=== PATIENT | male | born 1940 | race Caucasian/White ===

== ENCOUNTER → 2023-11-01 12:38 | Outpatient (REF) | payer MEDICARE, OTHER, SELFPAY | LOC: HWRAD 12:38 | PROVIDERS: ATTENDING PHYSICIAN Specialist; FAMILY PHYSICIAN Family Medicine | DX: R31.0 Gross hematuria (principal) | CPT/HCPCS: 76770 ==

== ENCOUNTER 2023-11-07 06:19 | Day surgery (SDC) | payer MEDICARE, OTHER, SELFPAY ==
[2023-11-07] VITALS (9 sets, daily range): BP systolic 122–159; BP diastolic 65–87; BMI 25.5
[2023-11-07 10:12] LABS: Glucose - Point of Care 107 mg/dl (70-99)
[2023-11-07] MEDS: SYRINGE NON-PUMP 50 ML IRRIG ×2 (12:55→12:56)
[2023-11-07] MEDS: SYRINGE NON-PUMP 50 MG IRRIG ×2 (12:55→12:56)
--- NOTE | 2023-11-07 13:08 | SUR.PHASEI ---
REc'd sleepy on stretcher with HOB elevated low fowlers, IV infusing well, CBI stopped, chemo instilled by Dr Allan, sylvia well, pt oriented x 3 by RN, positioned for comfort, no c/o at present
[2023-11-07] MEDS: Pyridium 200 MG PO (13:13)
--- NOTE | 2023-11-07 13:16 | SUR.PHASEI ---
Lightly dozing, vss, positioned for comfort, sylvia sips of water
--- NOTE | 2023-11-07 13:33 | SUR.PHASEI ---
alert, awake, talking
--- NOTE | 2023-11-07 13:46 | SUR.PHASEI ---
Lightly dozing vss
--- NOTE | 2023-11-07 14:07 | SUR.PHASEI ---
Awake, coreas bag taken down, sylvia well, CBI infusing at present
--- NOTE | 2023-11-07 14:25 | SUR.PHASEI ---
CBI stopped to remove ocreas
== END 2023-11-07 15:15 | disposition home or self-care (01) ==
LOC: SDS 06:19
PROVIDERS: ATTENDING PHYSICIAN Specialist
DX: C67.0 Malignant neoplasm of trigone of bladder (principal)
CPT/HCPCS: 52240; 88307; 82962; J9201

== ENCOUNTER 2024-03-14 06:20 | Day surgery (SDC) | payer MEDICARE, OTHER, SELFPAY ==
[2024-03-14] VITALS (14 sets, daily range): BP systolic 137–162; BP diastolic 72–112; BMI 25.7
[2024-03-14 10:10] LABS: Glucose - Point of Care 142 mg/dl (70-99)
[2024-03-14] MEDS: CYSVIEW KIT 100 MG INTRAVES (10:17)
[2024-03-14] MEDS: NORMOSOL-R 1000 IV (10:17)
[2024-03-14] MEDS: SYRINGE NON-PUMP 50 MG IRRIG ×2 (12:45→12:46)
[2024-03-14] MEDS: SYRINGE NON-PUMP 50 ML IRRIG ×2 (12:45→12:46)
[2024-03-14 13:07] LABS: Glucose - Point of Care 136 mg/dl (70-99)
[2024-03-14] MEDS: ZOFRAN 4 MG IV (13:10)
[2024-03-14] MEDS: COMPAZINE 5 MG IV (15:41)
[2024-03-14] MEDS: ROXICODONE 5 MG PO (16:27)
== END 2024-03-14 16:49 | disposition home or self-care (01) ==
LOC: SDS 06:20
PROVIDERS: ATTENDING PHYSICIAN Specialist
DX: N30.90 Cystitis, unspecified without hematuria (principal); C67.9 Malignant neoplasm of bladder, unspecified
CPT/HCPCS: 52204; 51720; C9738; 88307; 82962; A9589; C2617; J9201

== ENCOUNTER 2024-03-26 16:12 | Emergency (ER) | payer MEDICARE, OTHER, SELFPAY ==
[2024-03-26 16:17] VITALS: BP 135/115
--- NOTE | 2024-03-26 17:11 | ED.GENMED ---
History of Present Illness
General
Chief Complaint: Male Genito-Urinary Symptoms
Source: patient
Exam Limitations: none
Time Seen by Provider: 03/26/24 17:01
History of Present Illness
History of Present Illness:
84-year-old male presents with bladder discomfort and difficulty urinating worsening over the past 2 days. He had a transurethral bladder tumor resection performed on March 14 of this year. He typically was on Eliquis. He stopped Eliquis prior to
the procedure and was on aspirin in the immediate postoperative period. His first dose of Eliquis was yesterday. Today came in with difficulty voiding. He denies fevers or chills. No other complaints at this time
Past History
Past History
ED Past Medical History: Arrthythmia (Atrial fibrillation), Asthma (Bronchitis), Cancer (Melanoma, bladder), Hypercholesterolemia and Other (BPH)
ED Past Surgical History: Urological (Bladder tumor removal 2006) and Other (Skin resection)
Social History
Tobacco: Former smoker (Quit in 1977)
Alcohol: Daily (2-3 drinks a day)
Drug: None
Personal:
Living: with family
Employment: Retired
Family History
Family History: Other (Noncontributory)
Phy Exam
Physical Exam
Physical Exam:
General: Well-appearing male no acute respiratory distress
Abdomen soft mild suprapubic discomfort. No guarding or rebound normal bowel sounds
Extremities: No cyanosis or edema
Course
Orders/Labs/Results
Orders:
Orders
03/26/24 17:43
Urinalysis Reflex To Culture Urgent
Date Specimen was Collected: 03/26/24
Time Specimen was Collected: 17:51
Vital Signs
Initial and Last Documented VS:
Initial Vital Signs
Temp Pulse Resp BP Pulse Ox
98.2 F 86 18 135/115 98
03/26/24 16:17 03/26/24 16:17 03/26/24 16:17 03/26/24 16:17 03/26/24 16:17
Last Documented Vital Signs
Temp Pulse Resp BP Pulse Ox
98.2 F 86 18 135/115 98
03/26/24 16:17 03/26/24 16:17 03/26/24 16:17 03/26/24 16:17 03/26/24 16:17
MDM/Problems Addressed
Differential Diagnosis Includes:
Patient had difficulty voiding. Bladder scan through triage demonstrated 634 mL of urine in the bladder. Bergman catheter was placed for acute urinary retention. There is clear but jewel-colored urine in the bag. Patient is feeling much better.
Contacted urology to notify them.
*Critical Care Note
Total Time (30-74mins, 75-104mins- exclusive of procedures): Not Applicable
Update Note
Update Note:
Discussed findings with urology. They are aware. Catheter to be kept in. Follow-up with urology as planned. Urine culture pending
ED Attending Note
-
Portions of this chart may have been created with voice recognition software.� Occasional wrong word or��sound alike� substitutions may have occurred due to the inherent limitations of voice recognition software.
Discharge Plan
Departure
Patient Disposition: Home (Routine Discharge)
Date of Disposition: 03/26/24
Time of Disposition: 18:00
Patient with high blood pressure during this ER visit?: No
Discharge Problem:
Acute retention of urine
Prescriptions:
No Action
Eliquis 5 MG tablet
5 mg PO BID
multivitamin Tablet
1 tab PO DAILY
metformin 500 mg Tablet
500 mg PO DAILY
hydrochlorothiazide 12.5 mg Capsule
12.5 mg PO DAILY
tadalafil 20 mg Tablet
20 mg PO DAILY PRN (Reason: ED)
montelukast 10 mg Tablet
10 mg PO DAILY
metoprolol succinate 25 mg Tablet Extended Release 24 Hr
25 mg PO DAILY
ezetimibe-simvastatin 10-40 mg Tablet
1 tab PO HS
fluticasone propionate [Flonase] 50 mcg/actuation [place],Suspension
1 spray INTRANASAL DAILY
Referrals:
Torey Calhoun MD [Family Provider] -
Activity Restrictions/Additional Instructions:
Please follow-up with urology as planned. Empty urine Bergman bag as needed.
Interventions
Interventions:
ED-Male Genitourinary Assessment Last Done: 03/26/24 17:04
Discharge Date and Time
Print Language: [place]
[2024-03-26 18:10] LABS: Urine Albumin 1+ (Neg - Trace); Urine Bilirubin Negative (Negative); Urine Character Slightly Cloudy (Clear); Urine Color Yellow; Urine Glucose Negative (Negative); Urine Ketone Trace (Negative); Urine Leukocyte 1+ (Negative); Urine Nitrite Negative (Negative); Urine Occult Blood 4+ (Negative); Urine Urobilinogen Negative (Neg - 1+)
[2024-03-26 18:20] LABS: Urine Squamous Cell 0-2 /LPF (Few)
[2024-03-26 18:21] LABS: Urine Red Blood Cell 26-30 /HPF (0-2)
[2024-03-26 18:22] LABS: Urine Bacteria Few (Negative); Urine White Cell 50-60 /HPF (0-5)
== END 2024-03-26 18:31 | disposition home or self-care (01) ==
LOC: EMR 16:12
PROVIDERS: Physician Assistant; EMERGENCY PHYSICIAN Emergency Medicine; FAMILY PHYSICIAN Family Medicine
DX: R33.9 Retention of urine, unspecified (principal); I48.91 Unspecified atrial fibrillation; J45.909 Unspecified asthma, uncomplicated; E78.00 Pure hypercholesterolemia, unspecified; N40.0 Benign prostatic hyperplasia without lower urinary tract symptoms; Z85.820 Personal history of malignant melanoma of skin; Z87.891 Personal history of nicotine dependence
CPT/HCPCS: 99282; 51702; 81003; 81015; 87086

== ENCOUNTER 2024-05-13 23:57 | Inpatient (IN) | payer MEDICARE, OTHER, SELFPAY ==
[2024-05-13 22:46] VITALS: BP 116/58
--- NOTE | 2024-05-13 22:59 | ED.GENMED ---
History of Present Illness
General
Chief Complaint: Fever
Source: patient
Exam Limitations: none
Time Seen by Provider: 05/13/24 22:52
History of Present Illness
History of Present Illness:
See MDM
Past History
Past History
ED Past Medical History: Arrthythmia (Atrial fibrillation), Asthma (Bronchitis), Cancer (Melanoma, bladder), Hypercholesterolemia and Other (BPH)
ED Past Surgical History: Urological (Bladder tumor removal 2006) and Other (Skin resection)
Social History
Tobacco: Former smoker (Quit in 1977)
Alcohol: Daily (2-3 drinks a day)
Drug: None
Personal:
Living: with family
Employment: Retired
Family History
Family History: Other (Noncontributory)
Phy Exam
Physical Exam
Physical Exam:
See MDM
Course
Orders/Labs/Results
Orders:
Orders
05/13/24 22:58
Straight cath- Treatment ONCE
Acetaminophen [Tylenol] 1,000 mg PO NOW STA
05/13/24 23:01
0.9% Sodium Chloride 1000 ml [Nss] 1,000 ml IV BOLUS
05/13/24 23:17
COVID-19 Antigen Urgent
Source: Nasal Swab
Complete Blood Count/With Diff Urgent
Lactic Acid Q4H
Comment: CANCEL 2nd LACTIC ACID IF 1st LACTIC ACID IS LESS THAN 2
Urinalysis Reflex To Culture Urgent
Date Specimen was Collected: 05/13/24
Time Specimen was Collected: 23:15
Urine Microscopic Reflex Cult Urgent
Urine Culture Urgent
MARILU Source: U
Specimen Description:
Date Specimen was Collected: 05/13/24
Time Specimen was Collected: 23:15
05/13/24 23:18
Blood Culture Urgent
MARILU Source: Blood/Venous
Specimen Description:
05/13/24 23:19
Comprehensive Metabolic Panel Urgent
05/13/24 23:48
CefTRIAXone [Rocephin] 1,000 mg IV NOW STA
05/14/24 03:00
Lactic Acid Q4H
Comment: CANCEL 2nd LACTIC ACID IF 1st LACTIC ACID IS LESS THAN 2
Abnormal Lab Results
05/13/24
23:17
WBC 13.1 H 10^3/uL
(4.8-10.8)
RBC 3.05 L 10^6/uL
(4.70-6.10)
Hgb 9.5 L g/dL
(13.0-18.0)
Hct 26.8 L %
(39.0-52.0)
MCH 31.1 H pg
(27.0-31.0)
Abs Immat Gran (auto) 0.1 H 10^3/uL
(0-0.05)
Absolute Neuts (auto) 11.6 H 10^3/uL
(1.4-6.5)
Absolute Lymphs (auto) 0.5 L 10^3/uL
(1.2-3.4)
Absolute Monos (auto) 0.8 H 10^3/uL
(0.1-0.6)
Immature Gran % 0.8 H %
(0-0.5)
Neutrophils % 88.5 H %
(42.2-75.2)
Lymphocytes % 3.5 L %
(20.5-51.1)
Ur Occult Blood Reflex 4+ A
(Negative)
Urine Nitrite (Reflex) Positive A
(Negative)
Urine Bilirubin 1+ A
(Negative)
Urine Urobilinogen 2+ A
(Neg - 1+)
Leukocyte Esterase Rfl 2+ A
(Negative)
Urine Albumin (Reflex) 3+ A
(Neg - Trace)
05/13/24 23:17
Vital Signs
Initial and Last Documented VS:
Initial Vital Signs
Temp Pulse Resp BP Pulse Ox
100.9 F H 100 22 116/58 95
05/13/24 22:46 05/13/24 22:46 05/13/24 22:46 05/13/24 22:46 05/13/24 22:46
Last Documented Vital Signs
Temp Pulse Resp BP Pulse Ox
100.9 F H 100 22 116/58 95
05/13/24 22:46 05/13/24 22:46 05/13/24 22:46 05/13/24 22:46 05/13/24 22:46
MDM/Problems Addressed
Differential Diagnosis Includes:
HPI and MDM Narrative:
84-year-old male presenting for evaluation of fever. Patient has active bladder cancer and is receiving BCG treatments. He had 1 earlier today. When he developed a fever, he was given Motrin by his spouse. They called on-call urology and it was
suggested to go to the emergency department for evaluation and likely admission for UTI. Patient denies cough or congestion or other source of infection.
Physical exam
General: Weak and fatigued
HEENT: protecting airway
Neck: appears supple
CV: No evidence of cyanosis. Mild tachycardia
Resp: No accessory muscle use. Lungs clear
Abd: Non-distended
Extremities: No deformities
Neuro: alert
Psych: Normal affect
Skin: Warm
Problems Addressed including Acute and Chronic Conditions affecting care:
1. Fever
Acuity: acute
Prognosis: stable
Details: Likely in setting of UTI from recent BCG treatment. Will obtain urinalysis.
2. [ ]
Acuity: acute
Prognosis: stable
Details:
3. [ ]
Acuity: acute
Prognosis: stable
Details:
4. [ ]
Acuity: acute
Prognosis: stable
Details:
5. [ ]
Acuity:
Prognosis:
Details:
Updates
Urine is consistent with UTI. Given the fevers, will start Rocephin and admit
Differential Diagnosis (but not limited to): UTI, viral syndrome, COVID
Testing considered: Chest x-ray but lungs clear
Drug therapy (if applicable): OTC meds, please see d/c instruction regarding Rx drugs
Amount and/or Complexity of Data Reviewed
Clinical info obtained from: Patient
External data reviewed: N/A
Labs I independently reviewed (but not limited to): Leukocytosis, nitrate positive urine
Radiology: N/A
Pulse Ox: not hypoxic
EKG independently reviewed: N/A
Power Cutting Machine Operator: N/A
Critical Care: N/A
Risk of Complication:
Social Determinants of health: Good social support
Discussed with other providers: Hospitalist
Escalation of Care includes Admit/Obs: Given the history of bladder cancer with active UTI and fever, will start antibiotics and admit
Occasional wrong word or 'sound a like' substitutions may have occurred due to the inherent limitations of voice recognition software. Read the chart carefully and recognize, using context, where substitutions have occurred.
*Critical Care Note
Total Time (30-74mins, 75-104mins- exclusive of procedures): Not Applicable
ED Attending Note
-
Portions of this chart may have been created with voice recognition software.� Occasional wrong word or��sound alike� substitutions may have occurred due to the inherent limitations of voice recognition software.
Discharge Plan
Departure
Patient Disposition: Admit
Date of Disposition: 05/13/24
Time of Disposition: 23:50
Admit to: Med/Surg
Presentation/result/management discussed w/ accepting MD/DO: Hospitalist
Discharge Problem:
Acute UTI
Prescriptions:
No Action
Eliquis 5 MG tablet
5 mg PO BID
multivitamin Tablet
1 tab PO DAILY
metformin 500 mg Tablet
500 mg PO DAILY
hydrochlorothiazide 12.5 mg Capsule
12.5 mg PO DAILY
tadalafil 20 mg Tablet
20 mg PO DAILY PRN (Reason: ED)
montelukast 10 mg Tablet
10 mg PO DAILY
metoprolol succinate 25 mg Tablet Extended Release 24 Hr
25 mg PO DAILY
ezetimibe-simvastatin 10-40 mg Tablet
1 tab PO HS
fluticasone propionate [Flonase] 50 mcg/actuation [place],Suspension
1 spray INTRANASAL DAILY
Referrals:
Torey Calhoun MD [Family Provider] -
Interventions
Interventions:
*Risk Screen - Suicide Last Done: 05/13/24 22:46
*Neglect/Abuse Screening Last Done: 05/13/24 22:46
Discharge Date and Time
Print Language: [place]
[2024-05-13] MEDS: NSS 1000 IV (23:24)
[2024-05-13 23:25] VITALS: BP 103/56
[2024-05-13] MEDS: TYLENOL 1000 MG PO (23:30)
[2024-05-13 23:41] LABS: Urine Albumin 3+ (Neg - Trace); Urine Bilirubin 1+ (Negative); Urine Character Very Cloudy (Clear); Urine Color Yellow; Urine Glucose Negative (Negative); Urine Ketone Negative (Negative); Urine Leukocyte 2+ (Negative); Urine Nitrite Positive (Negative); Urine Occult Blood 4+ (Negative); Urine Urobilinogen 2+ (Neg - 1+)
[2024-05-13 23:42] LABS: % Basophils 0.5 % (0-2); % Eosinophils 0.6 % (0-6); % Immature Granulocytes 0.8 % (0-0.5); % Lymphocytes 3.5 % (20.5-51.1); % Monocytes 6.1 % (1.7-9.3); % Neutrophils 88.5 % (42.2-75.2); Absolute Basophils 0.1 10^3/uL (0-0.2); Absolute Eosinophils 0.1 10^3/uL (0-0.7); Absolute Immature Granulocytes 0.1 10^3/uL (0-0.05); Absolute Lymphocytes 0.5 10^3/uL (1.2-3.4); Absolute Monocytes 0.8 10^3/uL (0.1-0.6); Absolute Neutrophils 11.6 10^3/uL (1.4-6.5); Hematocrit 26.8 % (39.0-52.0); Hemoglobin 9.5 g/dL (13.0-18.0); Mean Corp Hgb Conc. 35.4 g/dL (33.0-37.0); Mean Corpuscular Hgb 31.1 pg (27.0-31.0); Mean Corpuscular Volume 87.9 fL (80.0-94.0); Mean Platelet Volume 9.4 fL (7.4-10.4); Nucleated Red Blood Cells % 0 % (-); Platelet Count 264 10^3/uL (130-400); Red Blood Cell Count 3.05 10^6/uL (4.70-6.10); Red Cell Dist. Width 13.5 % (11.5-14.5); White Blood Cell Count 13.1 10^3/uL (4.8-10.8)
[2024-05-13 23:47] LABS: Lactic Acid 0.9 mmol/L (0.7-2.0)
[2024-05-13 23:49] LABS: Urine Amorphous Seen; Urine Mucus Many; Urine Squamous Cell SEEN /LPF (Few)
[2024-05-13 23:50] LABS: Urine Red Blood Cell >100 /HPF (0-2); Urine White Cell >100 /HPF (0-5)
--- NOTE | 2024-05-13 23:52 | HPS.HSE ---
Family Physician
-
Family Physician: Torey Calhoun
Chief Complaint
-
Fever
History of Present Illness
HPI
84M HX Bladder tumor removal 2006, BPH, AF on Eliquis, BPH, HLD , receiving BCG Tx for active bladder CA seen at ER for evalaution of Fever;
- acute onset of fever . denied Chills
- gave him Motrin
- he called Urologist and refer to go to ER.
ROS:
denies cough or congestion or other source of infection.
Medical History
Past Medical History
Past Medical History: Reports Arrhythmia (A Fib ), HTN, Hypercholesterolemia, NIDDM and Other (BPH )
Past Surgical History: Reports Urological (Bladder tumor removal 2006)
Additional Past Surgical History:
Skin resection
Social History
Tobacco: Former Smoker
Alcohol: Daily (2-3 drinks a day)
Living: With Family
Employment: Retired
Family History
Family History: Not pertinent
Allergies / Home Medications
Allergies reflects when Allergies were last updated in [email or web address].
Home Medications with original date entered in [email or web address]
Allergy/Medication List:
Allergies
Allergy/AdvReac Type Severity Reaction Status Date / Time
animal dander Allergy sneezing/si Verified 05/13/24 22:48
nuses
levofloxacin [From Levaquin] Allergy Rash Verified 05/13/24 22:48
nitrofurantoin Allergy Rash Verified 05/13/24 22:48
Quinolones Allergy Rash Verified 05/13/24 22:48
Enviormental Allergy Sneezing, Uncoded 05/13/24 22:48
sinuses
Home Medications
apixaban 5 mg tablet (Eliquis) 5 mg PO BID 09/12/18
hydrochlorothiazide 12.5 mg capsule 12.5 mg PO DAILY 11/06/23
metformin 500 mg tablet 500 mg PO DAILY 11/06/23
multivitamin 1 tab PO DAILY 11/06/23
tadalafil 20 mg tablet 20 mg PO DAILY PRN ED 11/06/23
ezetimibe 10 mg-simvastatin 40 mg tablet 1 tab PO HS 03/12/24
metoprolol succinate 25 mg tablet,extended release 24 hr 25 mg PO DAILY 03/12/24
montelukast 10 mg tablet 10 mg PO DAILY 03/12/24
fluticasone propionate 50 mcg/actuation nasal spray,suspension 1 spray intranasal DAILY 03/14/24
Review of Systems
-
Constitutional: Reports Fever
EENT: Reports No Symptoms
Respiratory: Reports No Symptoms
Cardiac: Reports No Symptoms
Abdomen/GI: Reports No Symptoms
: Reports No Symptoms
Musculoskeletal: Reports No Symptoms
Skin: Reports No Symptoms
Neurological: Reports No Symptoms
Endocrine: Reports No Symptoms
Hematologic/Lymphatic: Reports No Symptoms
Psych: Reports No Symptoms
Physical Exam
Vital Signs
Vital Signs
Temp Pulse Resp BP Pulse Ox
100.9 F H 100 22 116/58 95
05/13/24 22:46 05/13/24 22:46 05/13/24 22:46 05/13/24 22:46 05/13/24 22:46
Physical Exam
General: Well Developed, Well Nourished and No Apparent Distress
HEENT: NormoCephalic, Moist mucous membranes and Atraumatic
Respiratory: Clear
Cardiac: S1/S2 and Tachycardia; No Murmur or Rub
GI: Soft, Non Tender, Non Distended and Normal Bowel Sounds; No Organomegaly
Rectal: Deferred by Provider
Musculoskeletal: No Clubbing, No Cyanosis and No Edema
Skin: No Rash
Neuro: Nonfocal/grossly intact
Laboratory Results
-
05/13/24 23:17
Laboratory Results
Lactic Acid 0.9 mmol/L (0.7-2.0) 05/13/24 23:17
Data Reviewed
-
Lab Data: Labs Reviewed by me
Old Records: Reviewed
Impression/Plan
-
Reviewed VS: T 100.9 HR 100 BP 115/60
Data
Abnormal Lab Results
05/13/24 05/13/24
23:17 23:19
WBC 13.1 H
RBC 3.05 L
Hgb 9.5 L
Hct 26.8 L
MCH 31.1 H
Abs Immat Gran (auto) 0.1 H
Absolute Neuts (auto) 11.6 H
Absolute Lymphs (auto) 0.5 L
Absolute Monos (auto) 0.8 H
Immature Gran % 0.8 H
Neutrophils % 88.5 H
Lymphocytes % 3.5 L
Sodium 131 L
BUN 27 H
Glucose 189 H
Total Protein 5.8 L
Albumin 3.2 L
Ur Occult Blood Reflex 4+ A
Urine Nitrite (Reflex) Positive A
Urine Bilirubin 1+ A
Urine Urobilinogen 2+ A
Leukocyte Esterase Rfl 2+ A
Urine RBC >100 A
Urine WBC (Reflex) >100 A
Urine Albumin (Reflex) 3+ A
Pending CMP
Pending LA
Pending Covid C19
BCx sent
08/23/22 TTE
Normal biventricular size and systolic function without regional wall motion
abnormality.
No significant valvular disease.
No significant change since the prior study of 09/06/18.
Last hospitalist admission:
ASSESSMENT & PLAN
Pending Rx reconciliation
Acute fever
Likely UTI
- No prior POS micro data
- Empiric IV CFTX
- IVF
- Tylenol PRN
Prx AF
- cont Eliquis
- cont Metoprolol succinate
Essential HTN
- cont HCTZ
- cont. Metoprolol succinate
HLD
- cont. Ezetimibe /simvastatin
HX BPH
HX Bladder tumor removal 2006
- receiving BCG Tx for active bladder CA s
DVT Px: HERB DIGGER Eliquis
Code: Full code
IP TLM
[2024-05-13 23:53] LABS: COVID-19 Antigen Negative (Negative)
[2024-05-13] MEDS: ROCEPHIN 1000 MG IV (23:59)
[2024-05-14] VITALS (8 sets, daily range): BP systolic 101–133; BP diastolic 49–69; BMI 27.1; BMI 26.9
[2024-05-14 00:03] LABS: ALT (SGPT) 30 U/L (0-50); AST (SGOT) 33 U/L (17-59); Albumin 3.2 g/dl (3.5-5.0); Alkaline Phosphatase 65 U/L (38-126); Blood Urea Nitrogen 27 mg/dl (9-20); Calcium 8.6 mg/dl (8.4-10.2); Carbon Dioxide 26 mmol/L (22-30); Chloride 98 mmol/L (98-107); Glucose 189 mg/dl (70-99); Potassium 3.6 mmol/L (3.5-5.1); Sodium 131 mmol/L (135-145); Total Bilirubin 0.7 mg/dl (0.2-1.3); Total Protein 5.8 g/dl (6.3-8.2); eGFR > 60.00
[2024-05-14] MEDS: NSS 1000 IV ×2 (00:44→17:08)
--- NOTE | 2024-05-14 03:30 | DOWNTIME ---
There was a [employer] Client Nursing Specialist Downtime on 05/14/2024 from 0100 to 05/14/2024 at 0252. Downtime documentation of patient's care, including medication administrations, has been reconciled in the electronic record per guidelines. Refer to the
patient's paper chart under the miscellaneous tab to see printed paper medication records and downtime forms.
[2024-05-14 06:18] LABS: Hematocrit 27.2 % (39.0-52.0); Hemoglobin 9.2 g/dL (13.0-18.0); Mean Corp Hgb Conc. 33.8 g/dL (33.0-37.0); Mean Corpuscular Hgb 31.5 pg (27.0-31.0); Mean Corpuscular Volume 93.2 fL (80.0-94.0); Mean Platelet Volume 9.4 fL (7.4-10.4); Platelet Count 257 10^3/uL (130-400); Red Blood Cell Count 2.92 10^6/uL (4.70-6.10); Red Cell Dist. Width 13.6 % (11.5-14.5); White Blood Cell Count 14.8 10^3/uL (4.8-10.8)
[2024-05-14 06:44] LABS: Blood Urea Nitrogen 25 mg/dl (9-20); Calcium 8.3 mg/dl (8.4-10.2); Carbon Dioxide 26 mmol/L (22-30); Chloride 100 mmol/L (98-107); Estimated Creatinine Clearance 45 ml/min; Glucose 136 mg/dl (70-99); Potassium 3.8 mmol/L (3.5-5.1); Sodium 133 mmol/L (135-145); eGFR > 60.00
[2024-05-14] MEDS: ELIQUIS 5 MG PO ×2 (09:26→19:23)
--- NOTE | 2024-05-14 12:08 | CM ---
Patient seen bedside.
IA completed.
Patient lives with spouse in an apartment at [facility], independent living.
No assistive devices.
Patient drives.
No hx VN or skilled rehab.
IMM completed.
PCP: Dr Calhoun
Pharmacy: [facility].
Plan: home no needs anticipated.
--- NOTE | 2024-05-14 15:47 | W.PN.HOSP.TC ---
Addendum entered and electronically signed by Marsha Pittman MD 05/16/24 16:03:
Other impression is sepsis: Present on admission with a temperature of 100.9 and white cell count is more than 14
Original Note:
Today's Communication/Plan
-
All discussed with the patient
Discussed with the nurse
CODE STATUS of full code
Called his and updated her over the
Assessment / Plan
Assessment / Plan
Physical exam:
General: Awake, alert and oriented x3, not in distress and holds appropriate conversation.
HEENT: No active discharge, ecchymosis or bruising, moist lips, tongue and mucous membrane.
Eyes: No discharge or red conjunctiva, no nystagmus, pupils are reactive and equal
Neck:Supple, no JVD no bruit no goiter.
Respiratory: Normal AP contour and diameter, normal chest wall movement, normal respiratory effort, no respiratory distress,
Lungs: Good air entry bilaterally, no wheezing or rhonchi, no rales or crackles
Heart: S1, S2 regular, normal rate, no added sound.
Gastrointestinal: Positive bowel sounds, soft, nontender, no guarding or rigidity or organomegaly
Musculoskeletal: , no chest wall abnormality or tenderness. All joints and extremities have good range of motion, no muscle tenderness or any joint swelling or tenderness.
Extremities: No pitting edema, good peripheral pulses, good range of motion
Neurological: Awake, alert and oriented x3, moves extremities freely, no facial droop, normal mental speech clear and comprehensive, good muscle tone,
Psychiatric: Normal mood, normal thought and judgment, normal affect,
84-year-old male with history of bladder tumor removal 2017. Patient had stent in urethra, presented to the hospital with a fever and chill and increased urinary frequency concerning for urinary tract infection.
--Urinary tract infection:
Associate with a fever and chills and increased urinary frequency, mildly improving
Urine and blood cultures pending
Continue Rocephin could be discontinued pending culture and sensitivity
Culture regimen take.
-Leukocytosis: Likely secondary to UTI
Mild elevated
Recheck.
-Hyponatremia: Present admission, was 131 today is 133
Recheck peripherally
-Anemia: Hemoglobin stable around 9 since admission.
Last MR Was 2018 hemoglobin is around 14, if already workup for the anemia as an outpatient was not done we will deferred to primary care further workup for anemia as an outpatient
History of paroxysmal A-fib:
Continue Eliquis
Metoprolol monitor vital sign
-Diabetes mellitus:
Metformin which is on hold
Add Glucoscan and monitor blood sugar closely
Anticipated Discharge: 24 - 48 hours
Subjective/Interval History
-
Date of Service: May 14, 2024
Seen and examined, awake and alert, sitting in the bed, admits chronic dysuria since placing a stent in his urethra, but admits of increasing the frequency but no hematuria, no fever and chills since yesterday evening, no chest pain or shortness of
breath or cough or congestion.
Objective Data
-
Labs:
Laboratory Results
05/14/24
04:43
WBC 14.8 H
Hgb 9.2 L
Hct 27.2 L
Plt Count 257
Sodium 133 L
Potassium 3.8
Chloride 100
Carbon Dioxide 26
BUN 25 H
Creatinine 0.9
Glucose 136 H
Calcium 8.3 L
Vital Signs:
Vital Signs
Temp Pulse Resp BP Pulse Ox
97.7 F 85 18 133/67 98
05/14/24 11:46 05/14/24 11:46 05/14/24 11:46 05/14/24 11:46 05/14/24 11:46
I&O
05/13/24 05/14/24 05/15/24
07:59 07:59 07:59
Intake Total 0 / 0
Balance 0 / 0
Review of Systems
-
All other systems: Reviewed and negative
[2024-05-14 16:48] LABS: Glucose - Point of Care 244 mg/dl (70-99)
[2024-05-14] MEDS: NOVOLOG FLEXPEN-LOW RESISTANCE 2 UNITS SC (17:10)
[2024-05-14] MEDS: TYLENOL 650 MG PO (19:28)
[2024-05-14 21:36] LABS: Glucose - Point of Care 171 mg/dl (70-99)
[2024-05-14] MEDS: STERILE WATER FOR INJECTION 10 ML IV (23:38)
[2024-05-14] MEDS: ROCEPHIN 1000 MG IV (23:38)
[2024-05-15 03:25] VITALS: BP 143/76
[2024-05-15] MEDS: TYLENOL 650 MG PO (03:28)
[2024-05-15 06:00] VITALS: BMI 27.3
[2024-05-15 06:52] LABS: Hematocrit 25.9 % (39.0-52.0); Hemoglobin 8.7 g/dL (13.0-18.0); Mean Corp Hgb Conc. 33.6 g/dL (33.0-37.0); Mean Corpuscular Hgb 30.5 pg (27.0-31.0); Mean Corpuscular Volume 90.9 fL (80.0-94.0); Mean Platelet Volume 9.4 fL (7.4-10.4); Platelet Count 257 10^3/uL (130-400); Red Blood Cell Count 2.85 10^6/uL (4.70-6.10); Red Cell Dist. Width 13.6 % (11.5-14.5); White Blood Cell Count 10.4 10^3/uL (4.8-10.8)
[2024-05-15 07:11] LABS: Blood Urea Nitrogen 21 mg/dl (9-20); Calcium 8.3 mg/dl (8.4-10.2); Carbon Dioxide 28 mmol/L (22-30); Chloride 102 mmol/L (98-107); Estimated Creatinine Clearance 51 ml/min; Glucose 132 mg/dl (70-99); Potassium 3.6 mmol/L (3.5-5.1); Sodium 134 mmol/L (135-145); eGFR > 60.00
--- NOTE | 2024-05-15 07:44 | PN.CDI ---
CDI
- -
CDI:
Physician Documentation Request
Admit Date: 05/13/24 23:57
Dear Doctor Zain,
Please review the following and provide your response in the progress notes.
Clinical Indicators:
PN, 05/14
#--Urinary tract infection:
#...Associate with a fever and chills and increased urinary frequency, mildly improving
#-Leukocytosis: Likely secondary to UTI
Laboratory Tests
05/13/24 05/14/24 05/15/24
23:17 04:43 04:40
WBC 13.1 H 14.8 H 10.4
05/13 Initial VS: 100.9 100 22 116/58 95%
Please clarify which of the following most accurately describes the status of the patient's infection:
Sepsis, POA
Localized Infection Only, Without Systemic Illness
- indicate the site/source, such as UTI, pneumonia etc.
Other(please specify)
Sepsis
- Systemic manifestations of infection, with 2 or more SIRS criteria which include:
- Fever >100.4 degrees F or hypothermia < 96.8 degrees F
- Leukocytosis - WBC > 12,000 or leukopenia - WBC < 4,000 or > 10% bands
- Tachycardia > 90 beats per minute
- Tachypnea - RR > 20 breaths per minute or PaCO2 , 32mmHg
Source: Merck Manual 2013
- Indicate the known or suspected underlying infection, such as UTI, pneumonia or cellulitis
Use of terms such as suspected, likely, concern for, or probable (associated with a specific diagnosis that is being evaluated, monitored, or treated as if it exists) are acceptable and can be coded in the inpatient setting, when documented at the
time of discharge.
Thank you,
Halima Hooks RN BSN CCDS
CDI Specialist
please contact via tiger text
Please use your independent medical judgment in providing your response.
[2024-05-15 07:56] LABS: Glucose - Point of Care 161 mg/dl (70-99)
[2024-05-15 08:05] VITALS: BP 127/64
[2024-05-15 08:34] LABS: Glycohemoglobin (HgbA1c) 6.9 % (4.0-5.6)
[2024-05-15] MEDS: NOVOLOG FLEXPEN-LOW RESISTANCE 1 UNITS SC ×2 (08:56→12:53)
[2024-05-15] MEDS: ELIQUIS 5 MG PO (08:57)
[2024-05-15 11:45] VITALS: BP 104/50
[2024-05-15 11:59] LABS: Glucose - Point of Care 175 mg/dl (70-99)
--- NOTE | 2024-05-15 13:59 | W.DCSUMMARY ---
Addendum entered and electronically signed by Marsha Pittman MD 05/16/24 16:19:
On May 16, 2024 I called the patient and the regarding the urine culture which was drawn no bacteria, looks like they have been contacted by urologist as patient initially was seen by urology that the culture did not grow any bacteria,
urology told him since he have no fever and culture negative we can stop antibiotic. Which is advised to the patient and the family if the fever come back need to come back to the hospital or take Tylenol and encourage oral hydration and follow-up
with the urology
Original Note:
Discharge Summary
Discharge Data
Date of Admission: 05/13/24
Date of Discharge: 05/15/24
-
Pending Results: Yes
Additional Pending Results:
Urine culture which has been negative called on May 16 and updated the patient and the
Hospital Course
Discharging Physician : Dr. Marsha Pittman
Disposition :
Primary care physician :
Principal Discharge diagnosis :
1. Acute sepsis present on admission
2. Urinary tract infection
3. Bladder cancer actively treated with BCG
4. Anemia, hemoglobin trending down and recommended to follow-up with the primary care for the workup is not the end
5. Hyponatremia present on admission
6. Paroxysmal A-fib
7. Diabetes mellitus
History of present illness:
84M with known history bladder tumor removal 2006, BPH, AF on Eliquis, BPH, HLD , receiving BCG treatment for active bladder CA seen at ER for evaluation of Fever;
- acute onset of fever . denied Chills
- gave him Motrin
- he called Urologist and refer to go to ER.
Hospital course:
So patient admitted complaining of fever and increased urinary frequency and chronic dysuria, urinalysis showed evidence of UTI while have no respiratory symptoms or any other complaint.
Patient had a blood and urine culture collected and started on Rocephin. He was continued to improve and be more energetic and during hospitalization other than initially had 1 other episode of low-grade fever, no any other symptom or complaint.
Urine culture did not grow any bacteria same as blood, eventually patient was discharged as he like to be discharged home and continue antibiotic at home.
So far urine cultures and blood cultures been negative.
Patient can be discharged on Ceftin for 7 more days.
Advised about increase oral hydration and intake and follow-up with primary care and urology as scheduled to continue his BCG treatment, advised about monitoring blood sugar and pressure.
Also notices hemoglobin has been around 8-9, the last time we had him in system was 2018 by then was 14, patient been having workup as an outpatient was to stop likely secondary to bladder cancer but patient and the advised need to be addressed
with the primary care physician if there is already workup not done for his anemia recommended workup as an outpatient he had colonoscopy 4 years ago.
All his condition and finding and management discussed with him and his on daily basis over the phone and the bedside.
Important imaging findings :
None
Changes to Home Medications: No
Discharge Medications:
DC Medications w/original date entered in [facility]
apixaban 5 mg tablet (Eliquis) 5 mg PO BID Blood Clot Prevention/Tx 09/12/18
hydrochlorothiazide 12.5 mg capsule 12.5 mg PO DAILY Fluid Retention/Swelling 11/06/23
metformin 500 mg tablet 500 mg PO DAILY Diabetes 11/06/23
multivitamin 1 tab PO DAILY Supplement 11/06/23
tadalafil 20 mg tablet 20 mg PO DAILY PRN ED 11/06/23
ezetimibe 10 mg-simvastatin 40 mg tablet 1 tab PO HS High Cholesterol 03/12/24
metoprolol succinate 25 mg tablet,extended release 24 hr 25 mg PO DAILY Heart Failure 03/12/24
montelukast 10 mg tablet 10 mg PO DAILY ASTHMA 03/12/24
fluticasone propionate 50 mcg/actuation nasal spray,suspension 1 spray intranasal DAILY Congestion 03/14/24
cefuroxime axetil 500 mg tablet 500 mg PO Q12H #14 tabs 05/15/24
Home Medication Changes
Pending Results: No
Additional Pending Results:
Physical exam:
General: Awake, alert and oriented x3, not in distress and holds appropriate conversation.
HEENT: No active discharge, ecchymosis or bruising, moist lips, tongue and mucous membrane.
Eyes: No discharge or red conjunctiva, no nystagmus, pupils are reactive and equal
Neck:Supple, no JVD no bruit no goiter.
Respiratory: Normal AP contour and diameter, normal chest wall movement, normal respiratory effort, no respiratory distress,
Lungs: Good air entry bilaterally, no wheezing or rhonchi, no rales or crackles
Heart: S1, S2 regular, normal rate, no added sound.
Gastrointestinal: Positive bowel sounds, soft, nontender, no guarding or rigidity or organomegaly
Musculoskeletal: , no chest wall abnormality or tenderness. All joints and extremities have good range of motion, no muscle tenderness or any joint swelling or tenderness.
Extremities: No pitting edema, good peripheral pulses, good range of motion
Skin: Warm and dry, no ulceration, normal color.
Neurological: Awake, alert and oriented x3, no facial droop, speech clear and comprehensive, good muscle tone, normal sensory and motor function
Psychiatric: Normal mood, normal thought and judgment, normal affect,
Condition on discharge: Awake, alert and oriented x3, answer question properly, able to make own decision and take care of activities of daily living, speech clear and comprehensive, continent of the bowel and bladder, ambulate without product safety technical assistant,
goes home where lives with the family independently.
Discharge Plan
-
Patient Disposition: Home (Routine Discharge)
Discharge Diagnosis/Procedures: UTI
Condition: Good
Diet: Low Fat, 2 Gram Sodium and Diabetic, Carb Controlled
Activity Restrictions/Additional Instructions:
Increase oral hydration
Take Tylenol if fever returns, if fever persist need to come back to the hospital.
As discussed the option was to keep until urine culture comes back discharge plan while the other option is to be discharged on some oral antibiotic once conversion for the current intravenous you taking now, we will call you once the culture
result back if antibiotic is not working on the bacteria grown.
Continue home medication.
Follow-up with primary care physician and urology as planned.
As discussed hemoglobin count is below, the last time we have it on archive in the system was in 2018 was normal now is ranging around 9, if not already addressed by primary care physician may need to be addressed, and has mentioned you been doing
regular blood work as an outpatient and have results at home.
As addressed
Regular colonoscopy the last 1 was 4 years ago
Monitor for any kind of bleeding or changes stool or urine color if any happened need to stop Eliquis, to the hospital and or address it with primary care physician
Referrals:
Torey Calhoun MD [Family Provider] -
Prescriptions:
New
cefuroxime axetil 500 mg tablet
500 mg PO Q12H Qty: 14 0RF
Continued
Eliquis 5 MG tablet
5 mg PO BID
multivitamin Tablet
1 tab PO DAILY
metformin 500 mg Tablet
500 mg PO DAILY
hydrochlorothiazide 12.5 mg Capsule
12.5 mg PO DAILY
tadalafil 20 mg Tablet
20 mg PO DAILY MDD BPH PRN (Reason: ED)
montelukast 10 mg Tablet
10 mg PO DAILY
metoprolol succinate 25 mg Tablet Extended Release 24 Hr
25 mg PO DAILY
ezetimibe-simvastatin 10-40 mg Tablet
1 tab PO HS
fluticasone propionate 50 mcg/actuation [place],Suspension
1 spray INTRANASAL DAILY
Discharge Orders:
Discharge Patient (As Directed); Ordered 05/15/24
Ordered By: Marsha Pittman
Discharge Date and Time
Discharge Date/Time: 05/15/24 14:21
Print Language: MONGOLIAN
--- NOTE | 2024-05-15 14:19 | CM ---
Mr. Mendoza has been cleared for discharge to home today. His will drive him home.
Plan: Discharge to home ([facility] apartment) with no needs.
PCP: Dr Calhoun
Pharmacy: [facility].
--- NOTE | 2024-05-16 16:03 | W.DS.TRANS ---
DC Summary - [employer]
-
Discharge Instructions:
Sleep Apnea Risk Intermediate
Discharge Diagnosis/Procedures UTI
Diet Low Fat,Diabetic, Carb Controlled,2 Gram Sodium
Instructions:
Stand-Alone Forms:
Changes to Home Medications: No
Discharge Medications:
DC Medications w/original date entered in [facility]
apixaban 5 mg tablet (Eliquis) 5 mg PO BID Blood Clot Prevention/Tx 09/12/18
hydrochlorothiazide 12.5 mg capsule 12.5 mg PO DAILY Fluid Retention/Swelling 11/06/23
metformin 500 mg tablet 500 mg PO DAILY Diabetes 11/06/23
multivitamin 1 tab PO DAILY Supplement 11/06/23
tadalafil 20 mg tablet 20 mg PO DAILY PRN ED 11/06/23
ezetimibe 10 mg-simvastatin 40 mg tablet 1 tab PO HS High Cholesterol 03/12/24
metoprolol succinate 25 mg tablet,extended release 24 hr 25 mg PO DAILY Heart Failure 03/12/24
montelukast 10 mg tablet 10 mg PO DAILY ASTHMA 03/12/24
fluticasone propionate 50 mcg/actuation nasal spray,suspension 1 spray intranasal DAILY Congestion 03/14/24
cefuroxime axetil 500 mg tablet 500 mg PO Q12H #14 tabs 05/15/24
Home Medication Changes
Pending Results: No
Additional Pending Results:
Physical exam:
General: Awake, alert and oriented x3, not in distress and holds appropriate conversation.
HEENT: No active discharge, ecchymosis or bruising, moist lips, tongue and mucous membrane.
Eyes: No discharge or red conjunctiva, no nystagmus, pupils are reactive and equal
Neck:Supple, no JVD no bruit no goiter.
Respiratory: Normal AP contour and diameter, normal chest wall movement, normal respiratory effort, no respiratory distress,
Lungs: Good air entry bilaterally, no wheezing or rhonchi, no rales or crackles
Heart: S1, S2 regular, normal rate, no added sound.
Gastrointestinal: Positive bowel sounds, soft, nontender, no guarding or rigidity or organomegaly
Musculoskeletal: , no chest wall abnormality or tenderness. All joints and extremities have good range of motion, no muscle tenderness or any joint swelling or tenderness.
Extremities: No pitting edema, good peripheral pulses, good range of motion
Skin: Warm and dry, no ulceration, normal color.
Neurological: Awake, alert and oriented x3, no facial droop, speech clear and comprehensive, good muscle tone, normal sensory and motor function
Psychiatric: Normal mood, normal thought and judgment, normal affect,
Condition on discharge: Awake, alert and oriented x3, answer question properly, able to make own decision and take care of activities of daily living, speech clear and comprehensive, continent of the bowel and bladder, ambulate without environmental assistant,
goes home where lives with the family independently.
== END 2024-05-15 14:21 | disposition home or self-care (01) | DRG 872 ==
LOC: 4 EAST ACU 23:57
PROVIDERS: ADMITTING PHYSICIAN Internal Medicine; ATTENDING PHYSICIAN Internal Medicine; EMERGENCY PHYSICIAN Student in an Organized Health Care Education/Training Program; FAMILY PHYSICIAN Family Medicine
DX: A41.9 Sepsis, unspecified organism (principal); N39.0 Urinary tract infection, site not specified; E87.1 Hypo-osmolality and hyponatremia; Z87.891 Personal history of nicotine dependence; Z11.52 Encounter for screening for COVID-19; C67.9 Malignant neoplasm of bladder, unspecified; D64.9 Anemia, unspecified; I48.0 Paroxysmal atrial fibrillation; E11.9 Type 2 diabetes mellitus without complications
CPT/HCPCS: 80048; 80053; 81003; 81015; 82962; 83036; 83605; 85025; 85027; 87040; 87070; 87086; 87811; 96360; 99285

== ENCOUNTER → 2024-05-28 09:00 | Outpatient (REF) | payer MEDICARE, OTHER, SELFPAY | LOC: RAD 09:00 | PROVIDERS: ATTENDING PHYSICIAN Student in an Organized Health Care Education/Training Program; FAMILY PHYSICIAN Family Medicine | DX: R05.9 Cough, unspecified (principal) | CPT/HCPCS: 71046 ==

== ENCOUNTER → 2024-06-06 08:46 | Outpatient (REF) | payer MEDICARE, OTHER, SELFPAY | LOC: HWRAD 08:46 | PROVIDERS: ATTENDING PHYSICIAN Specialist; FAMILY PHYSICIAN Student in an Organized Health Care Education/Training Program | DX: C67.9 Malignant neoplasm of bladder, unspecified (principal); R63.4 Abnormal weight loss | CPT/HCPCS: 74177; Q9967 ==

== ENCOUNTER → 2024-07-24 06:22 | Day surgery (SDC) | payer MEDICARE, OTHER, SELFPAY ==
[2024-07-24 08:50] LABS: Glucose - Point of Care 132 mg/dl (70-99)
== END ==
LOC: GI 06:22
PROVIDERS: ATTENDING PHYSICIAN Student in an Organized Health Care Education/Training Program
DX: D50.9 Iron deficiency anemia, unspecified (principal); R63.4 Abnormal weight loss; K57.30 Diverticulosis of large intestine without perforation or abscess without bleeding; K64.0 First degree hemorrhoids; K22.89 Other specified disease of esophagus; K44.9 Diaphragmatic hernia without obstruction or gangrene; K31.89 Other diseases of stomach and duodenum; K31.7 Polyp of stomach and duodenum; D12.0 Benign neoplasm of cecum; D12.3 Benign neoplasm of transverse colon; D12.1 Benign neoplasm of appendix; D12.4 Benign neoplasm of descending colon; K29.80 Duodenitis without bleeding
CPT/HCPCS: 45385; 45380; 43239; 88305; 82962; 88342

== ENCOUNTER 2024-10-23 06:05 | Day surgery (SDC) | payer MEDICARE, OTHER, SELFPAY ==
[2024-10-23 07:05] VITALS: BP 161/83
[2024-10-23 07:06] LABS: Glucose - Point of Care 96 mg/dl (70-99)
[2024-10-23 07:22] VITALS: BMI 24.5
[2024-10-23 07:26] VITALS: BMI 24.5
[2024-10-23 08:51] VITALS: BP 104/75
[2024-10-23 09:00] VITALS: BP 116/71
[2024-10-23 09:09] VITALS: BP 108/76
== END 2024-10-23 09:20 | disposition home or self-care (01) ==
LOC: SDS 06:05
PROVIDERS: ATTENDING PHYSICIAN Internal Medicine Gastroenterology
DX: K62.89 Other specified diseases of anus and rectum (principal); K64.9 Unspecified hemorrhoids; Z79.01 Long term (current) use of anticoagulants
CPT/HCPCS: 43241; 82962

== ENCOUNTER → 2025-01-02 11:15 | Outpatient (REF) | payer MEDICARE, OTHER, SELFPAY | LOC: PAVMRI 11:15 | PROVIDERS: ATTENDING PHYSICIAN Student in an Organized Health Care Education/Training Program; FAMILY PHYSICIAN Family Medicine | DX: K86.2 Cyst of pancreas (principal) | CPT/HCPCS: 74183; A9575 ==

== ENCOUNTER 2025-04-02 06:25 | Day surgery (SDC) | payer MEDICARE, OTHER, SELFPAY ==
[2025-04-02 07:52] VITALS: BMI 24.5
[2025-04-02 07:54] VITALS: BMI 24.5
[2025-04-02 08:10] LABS: Glucose - Point of Care 136 mg/dl (70-99)
[2025-04-02 08:14] VITALS: BP 122/73
[2025-04-02 11:09] VITALS: BP 114/70
[2025-04-02 11:15] VITALS: BP 125/70
[2025-04-02 11:30] VITALS: BP 117/79
[2025-04-02 11:40] VITALS: BP 124/65
== END 2025-04-02 12:00 | disposition home or self-care (01) ==
LOC: SDS 06:25
PROVIDERS: ATTENDING PHYSICIAN Internal Medicine Gastroenterology
DX: K86.2 Cyst of pancreas (principal); K86.9 Disease of pancreas, unspecified; Z79.01 Long term (current) use of anticoagulants
CPT/HCPCS: 43242; 82962

== ENCOUNTER 2025-09-07 06:27 | Day surgery (SDC) | payer MEDICARE, OTHER, SELFPAY ==
[2025-09-07 11:28] LABS: Glucose - Point of Care 103 mg/dl (70-99)
== END 2025-09-07 13:22 | disposition home or self-care (01) ==
LOC: GI 06:27
PROVIDERS: ATTENDING PHYSICIAN Student in an Organized Health Care Education/Training Program; FAMILY PHYSICIAN Family Medicine
DX: Z12.11 Encounter for screening for malignant neoplasm of colon (principal); K57.30 Diverticulosis of large intestine without perforation or abscess without bleeding; D12.3 Benign neoplasm of transverse colon; D12.5 Benign neoplasm of sigmoid colon; K63.5 Polyp of colon; Z86.0101 Personal history of adenomatous and serrated colon polyps
CPT/HCPCS: 45385; 45380; 82962; 88305